=== PATIENT | female | born 1960 | race Caucasian/White ===

== ENCOUNTER → 2017-05-28 | Outpatient (CLI) | payer BC ==
--- NOTE | 2017-05-29 09:42 | MRI ---
EXAM DESCRIPTION: Knee,Right: MRI. CLINICAL HISTORY: PAIN IN RIGHT KNEE COMPARISON: None. TECHNIQUE: Multiplanar, high-field MRI, multiple sequences, without contrast: right ortho FINDINGS: Abnormal signal in the posterior horn of the medial meniscus extending to the inferior articular surface near the collateral image and the superior surface and free edge abutting the body of the meniscus. Intermediate signal in the anterior horn. Diffuse [id number] chondromalacia medial joint space. Minimal effusion. Focal grade 4 subchondral lesion medial femoral condyle. Lateral meniscus intact. Focal grade 3 or grade 4 osteochondrosis central lateral tibial plateau. No subchondral edema in the lateral femoral condyle. Posterior cystlike fluid collections medial soft tissues. Thickening and intermediate signal of the fibular collateral ligament. Remaining elements of the lateral collateral ligament complex are unremarkable. Medial collateral ligament is intact. Anterior cruciate and posterior cruciate ligaments are unremarkable. Intercruciate space effusion. Grade 3 to grade 4 osteochondral lesion on the medial patellar facet. Ulceration of the cartilage overlying the patellar apex. Suprapatellar effusion. Medial and lateral patellar soft tissue restraints are intact. Edema anterior to the patella. Patellar tendon with edema at the patellar tendon insertion on the patella. Edema anterior to the tendon. IMPRESSION: 1. Horizontal inferior tear the posterior horn the medial meniscus. Second tear more medially on the free edge superior aspect. Medial joint effusion. Grade 4 osteochondral lesion in the medial condyle. 2. Grade 3-4 osteochondral lesion in the central lateral tibial plateau. Lateral meniscus is intact. Posterior medial Jacobs cysts. 3. Sprain of the fibular collateral ligament at the femoral insertion. Medial collateral ligament and cruciate ligaments are intact. Intra-cruciate space effusion. 4. Grade 4 osteochondral lesion medial patellar facet with ulceration of cartilage overlying the patellar apex. Suprapatellar effusion. Proximal patellar tendinitis with prepatellar edema may represent jumper's knee, or tile-layer's knee. Electronically signed by: Fran Castanon MD 05/29/2017 9:40 AM CDT
== END ==
LOC: MRI 10:00
PROVIDERS: ATTEND Nurse Practitioner
DX: S83.241A Other tear of medial meniscus, current injury, right knee, initial encounter (principal)

== ENCOUNTER → 2018-02-03 | Outpatient (CLI) | payer BC ==
--- NOTE | 2018-02-03 11:55 | CT ---
EXAM DESCRIPTION: Abdomen w/Contrast: Computed Tomography. CLINICAL HISTORY: R10.9 ABD PAIN. Proper quadrant. Previous cholecystectomy. COMPARISON: None. TECHNIQUE: Spiral-axial scans at 5 x 5 mm intervals through the abdomen, after nonionic IV contrast. No oral contrast. Coronal and sagittal 2.0 x 2.0 mm reconstructions. No delayed scans. No adverse reactions. Total Exam DLP: 489.23 mGy-cm. This exam was performed according to our departmental CT dose-optimization program which includes automated exposure control, adjustment of the mA and/or kV according to patient size and/or use of iterative reconstruction technique; to reduce radiation dose to as low as reasonably achievable (ALARA). FINDINGS: Lung bases and pleura: Pleural parenchymal scarring in the left base. Liver, Stomach, Spleen, Adrenal Glands: Right lobe long axis is 17.4 cm. Minimal intrahepatic biliary duct air. No focal lesions. Smooth capsule. 1.2 x 1.3 cm minimally enhancing mass in the left adrenal gland. Hounsfield density +56 a few. Right adrenal gland negative. Spleen and stomach unremarkable. Minimal distention of the duodenal bulb and proximal duodenum with fluid. Normal density of fat surrounding these organs. Pancreas, Gallbladder, Ducts: Surgical clips in the gallbladder fossa with no fluid. Minimal dilation of the proximal common bile duct. Minimal air in the intrahepatic ducts. Kidneys: 3 mm well-defined circumscribed cyst abutting the anterior upper pole of the right kidney. Minimal cortical thinning left kidney. No hydronephrosis or radiodense stones bilaterally. Proximal ureters negative. Mesentery: Normal density. No free air or fluid. Aorta: Moderate narrowing of the mid and distal aorta with intimal thickening and atherosclerotic calcification extending into the bilateral common iliac arteries. Small Bowel: Included segments contain fluid with no air-fluid levels. Terminal Ileum/Cecum: Normal caliber. Appendix not seen. Normal density of the surrounding fat. Small surrounding lymph nodes. Colon: Fecal material in the proximal half of the colon. Normal caliber remaining segments with sigmoid and rectum not imaged. Spine: Spondylosis multiple levels of the thoracic spine. No lytic or blastic lesions. Abdominal Wall/Back Soft Tissues: Numerous large calcifications in the subcutaneous adipose tissue of the upper buttocks bilaterally. IMPRESSION: 1. Left adrenal gland mass 1.3 cm enhancing homogeneously with Hounsfield density +56. With homogeneous enhancement, Hounsfield units less than 130, and size between 1 and 2 cm, this is probably an adenoma. [facility] Best Practice recommendations is one year follow-up adrenal washout CT. If stable after one year (compared to current study), no further follow-up imaging. 2. Simple, 3 cm cyst right kidney. Minimal cortical thinning of the left kidney may be age-related. 3. No organomegaly. Postcholecystectomy changes in the intrahepatic biliary ducts and common biliary duct. 4. Spondylosis lower thoracic spine. 5. Moderate atherosclerotic changes in the mid and distal abdominal aorta. 6. Injection granulomas in the bilateral upper buttock adipose tissue. Electronically signed by: Fran Castanon MD 02/03/2018 11:54 AM [facility]
== END ==
LOC: CT 09:30
PROVIDERS: ATTEND Nurse Practitioner
DX: R10.9 Unspecified abdominal pain (principal); E27.8 Other specified disorders of adrenal gland; N28.1 Cyst of kidney, acquired; I70.0 Atherosclerosis of aorta; M47.894 Other spondylosis, thoracic region; Z90.49 Acquired absence of other specified parts of digestive tract

== ENCOUNTER → 2018-09-22 | Outpatient (CLI) | payer BC ==
--- NOTE | 2018-09-23 09:20 | US ---
EXAM DESCRIPTION: Venous,Lower Extremity RT: ULTRASOUND. CLINICAL HISTORY: Pain in unspecified lower leg RIGHT. Right total knee replacement 08/11/2018. COMPARISON: None Available. TECHNIQUE: Valladares-scale and doppler sonographic evaluation of the deep venous system of the right lower extremity. FINDINGS: Doppler evaluation shows normal color flow and normal phasicity and augmentation of the right common femoral vein, femoral vein, popliteal vein, greater saphenous vein, peroneal, and posterior tibial vein. The right lower extremity deep veins were completely compressible; normal occlusion with transducer pressure. Valladares-scale survey showed no echogenic thrombus within these veins. Multiple hypoechoic lymph nodes with central echogenicity and circumscribed margins. Some of these are not vascular. Long axis of these 4 lymph nodes are 2.6, 2.3, 2.2, and 2.0 cm. Focal dilation of the right popliteal vein measuring 2.0 x 2.2 x 1.9 cm and containing an anterior valve. No thrombus. IMPRESSION: 1. Duplex ultrasound evaluation of the right lower extremity deep venous system showing no evidence of thrombosis. 2. Focal dilation of the right popliteal vein measuring up to 2.2 cm in diameter and containing an anterior valve. No thrombus. 3. Multiple enlarged lymph nodes in the medial right thigh near the inguinal canal. These may be secondary to recent surgery. Electronically signed by: Fran Castanon MD 09/23/2018 9:18 AM CDT
== END ==
LOC: US 09:30
PROVIDERS: ATTEND General Practice
DX: M79.661 Pain in right lower leg (principal); I87.8 Other specified disorders of veins; R59.1 Generalized enlarged lymph nodes; Z98.890 Other specified postprocedural states

== ENCOUNTER → 2018-10-12 | Outpatient (CLI) | payer BC ==
--- NOTE | 2018-10-12 17:56 | CT ---
EXAM DESCRIPTION: Abdomen w/wo Contrast: Computed Tomography. CLINICAL HISTORY: R63.4 COMPARISON: CT scan abdomen with IV contrast 02/03/2018. TECHNIQUE: Spiral-axial scans at 5 x 5 mm intervals, from the diaphragms through the upper pelvis, before and after nonionic IV contrast. No oral contrast. . Post-IV contrast scans performed at arterial phase, 60-second portal venous phase. Coronal and sagittal 2.0 mm reconstructions. 2.5 mm Delayed scans, liver through the upper pelvis. 10 minutes after IV contrast injection. No adverse reactions. DLP 2304.24 mGy-cm. This exam was performed according to our departmental CT dose-optimization program which includes automated exposure control, adjustment of the mA and/or kV according to patient size and/or use of iterative reconstruction technique; to reduce radiation dose to as low as reasonably achievable (ALARA). FINDINGS: Liver, stomach, adrenal glands, and spleen: Limited renal mass measures 1.2 x 1.0 cm in the transverse plane and 1.3 cm craniocaudal axis. Stable in size since the prior study. No calcifications. Precontrast Hounsfield density -6.3. Post-IV contrast 60-second contrast density +42.8. Post-IV contrast 10 minute contrast density +9.6. The absolute percentage washout value is 67.6% Normal density of the surrounding fat. Calcification abutting the spleen. Stomach negative. Minimal dilation of the distal intrahepatic ducts. Unchanged. Other organs are negative. Pancreas/Gallbladder/Ducts: Surgical clips in the gallbladder fossa. No fluid. Slightly dilated common bile duct. Pancreas negative. Kidneys and Ureters: Unremarkable. Mesentery: Negative. Aorta: Mild to moderate atherosclerotic calcifications. Minimal luminal narrowing distally. Small Bowel: Included segments normal caliber. Terminal Ileum/Cecum: Normal caliber. Appendix not seen. Colon: Moderate amount of fecal material in the included segments. No complications. Scattered diverticula Spine: Minimal disc space narrowing thoracic spine with endplate spurs.. Abdominal Wall/Back Soft Tissues: Negative. Lung bases and pleura: Unremarkable. IMPRESSION: 1. Abdominal CT scan with adrenal washout protocol for left adrenal mass with absolute percentage washout value +67.6%. This value is greater than 60%, therefore the mass is consistent with adrenal adenoma. This agrees with the prior study in January 2018. According to [facility] Best Practice recommendations, no further CT follow-up is recommended. 2. Minimally dilated distal intrahepatic biliary ducts are stable. Dilated common bile duct postcholecystectomy is stable. No ascites. 3. Mild diverticulosis without complications is unchanged. Electronically signed by: Fran Castanon MD 10/12/2018 5:54 PM CDT
== END ==
LOC: CT 09:25
PROVIDERS: ATTEND Nurse Practitioner
DX: E27.9 Disorder of adrenal gland, unspecified (principal); K57.30 Diverticulosis of large intestine without perforation or abscess without bleeding; R63.4 Abnormal weight loss; Z90.49 Acquired absence of other specified parts of digestive tract

== ENCOUNTER → 2019-01-28 | Outpatient (CLI) | payer BC ==
--- NOTE | 2019-01-29 09:11 | CT ---
EXAM DESCRIPTION: Chest w/Contrast : Computed Tomography. CLINICAL HISTORY: 58 years Female ABNORMAL WEIGHT LOSS COMPARISON: Abdominal pelvic CT scan without contrast and with adrenal contrast washout protocol 12 October 2018. TECHNIQUE: Spiral-axial scans at 5.0 mm intervals through the lungs and thorax with IV contrast. 2.5 x 5 mm lung algorithm axial reconstructions. Coronal and sagittal 2.0 Mm reconstructions. No adverse reactions. Total Exam DLP: 339.63 mGy-cm. This exam was performed according to our departmental dose-optimization program which includes automated exposure control, adjustment of the mA and/or kV according to patient size and/or use of iterative reconstruction technique; to reduce radiation dose to as low as reasonably achievable (ALARA). Nodule measurements under 10 mm are given as mean value of 3 axes diameters. FINDINGS: Lungs and large airways: Unusual merging of prominent vessels in the posterior subpleural space of the right upper lobe near the apex on images 4/28-31. Possible AVM. Calcified subpleural 3 mm nodule lateral right upper lobe image 4/32. Parenchymal bulla in the superior segment right lower lobe. Pleural parenchymal scarring inferior lingula and right lower lobe. Small pleural-based blebs, upper lobes and superior segments of the lower lobes 2.5 mm calcified subpleural nodule lateral upper lingula image 4/39 bilateral posterior dependent atelectasis abutting the lower lobes. No abnormal nodules or mass. No focal infiltrates. Pleural spaces: Scattered focal dilated spaces and pleural thickening. No effusion or pneumothorax. Mediastinum and Naz: No enlarged nodes or soft tissue masses. Great vessels and Heart: Atherosclerotic calcification brachiocephalic vessels and aortic arch. Soft tissues of neck base, axillae, and chest wall: Enlarged isthmus and left lobe of the thyroid gland with a subcentimeter nodule anteriorly. Axillary lymph nodes. Upper abdomen: No free fluid or free air. No abnormal enhancement. 1 x 1.5 cm mass in the left adrenal gland with Hounsfield density +45. Right adrenal gland is unremarkable. Previous adrenal CT washout protocol demonstrated this to be an adrenal adenoma. Stable size. Osseous structures: Minimal spondylosis mid and lower thoracic spine and minimal arthrosis at the sternomanubrial joint and sternoclavicular joints as well as the left glenohumeral joint. IMPRESSION: 1. 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 Not associated with soft tissue mass, bone lesion, or abnormal pleural enhancement. No abnormal nodules and no mass. No focal infiltrates. Bilateral subpleural calcified granulomas. Emphysematous changes upper and lower lobes mostly paraseptal type. 2. Stable left adrenal adenoma since prior abdominal CT scan with adrenal contrast washout protocol. 3. Enlarged isthmus and left lobe of the thyroid gland with a subcentimeter nodule in the left lobe. Subcentimeter incidental thyroid nodule. No follow-up imaging is recommended. Reference: J Am Bernadette Radiol. 2015 Mar;12(2): 143-50 Electronically signed by: Fran Castanon MD 01/29/2019 9:09 AM [facility]
== END ==
LOC: CT 10:04
PROVIDERS: ATTEND General Practice
DX: D35.02 Benign neoplasm of left adrenal gland (principal); R91.8 Other nonspecific abnormal finding of lung field; J43.9 Emphysema, unspecified; J84.10 Pulmonary fibrosis, unspecified; E04.1 Nontoxic single thyroid nodule; E07.89 Other specified disorders of thyroid; R63.4 Abnormal weight loss; Z72.0 Tobacco use